=== PATIENT | male | born 1985 | race Two or more races ===

== ENCOUNTER 2024-11-28 11:18 | Emergency (ER) | payer MEDICAID, SELFPAY ==
[2024-11-28] VITALS (7 sets, daily range): BP systolic 97–180; BP diastolic 42–82; PULSE 77–94; RESP 16–20; TEMP 36.7–36.9; O2SAT 95–98; BMI 35.4
--- NOTE | 2024-11-28 11:46 | EKG_ITS ---
[facility] Test Date: 2024-11-28 Pat Name: QUETA RODRIGUEZ Department: Room: - Gender: Male Control Room Agent: : 1985 Requested By: Luis Lr Order Number: [id number] Reading MD: Luis Lr Measurements Intervals [place] Rate: 74 P: -2 NH: 143 QRS: -7 QRSD: 106 T: 24 QT: 409 QTc: 455 Interpretive Statements SINUS RHYTHM MODERATE VOLTAGE CRITERIA FOR LVH, CONSIDER NORMAL VARIANT [MEETS CRITERIA IN ONE OF: R(aVL), S(V1), R(V5), R(V5/V6)+S(V1)] No previous ECG available for comparison /store/S0/[id number].pdf
--- NOTE | 2024-11-28 11:47 | EDNOTE_ITS ---
Nausea/Vomit./Diarrhea-RME/HPI General Chief complaint: Nausea/Vomiting/Diarrhea Stated complaint: NAUSEA AND VOMITTING Time Seen by Provider: 11/28/24 11:45 Arrival date/time: 11/28/24 11:18 RME / HPI RME / HPI Narrative: 39-year-old male patient with significant history of alcoholic liver cirrhosis, hypertension came in for evaluation regarding vomiting. Patient's been vomiting since earlier today, bloody, x 2, severity moderate. Patient also mention about dark-colored stool for the last few days. Patient was drinking alcohol on a daily basis, last drink today 3 beers. Denies any other complaints. Related Data Home Medications ?Medication ?Instructions ?Recorded ?Confirmed acamprosate 333 mg tablet,delayed 333 mg PO TID 09/22/23 release Previous Rx's ?Medication ?Instructions ?Recorded folic acid 1 mg tablet 1 mg PO QDAY 30 days #30 tab s 03/09/24 lactulose 10 gram/15 mL oral 15 ml PO QDAY 30 days #0 mL 03/09/24 solution (Constulose) losartan 25 mg tablet 25 mg PO QDAY 30 days #30 ta bs 03/09/24 pantoprazole 40 mg tablet,delayed 40 mg PO QDAY 30 day s #30 tabs 03/09/24 release propranolol 10 mg tablet 10 mg PO TID 30 days #90 tab s 03/09/24 rifaximin 550 mg tablet (Xifaxan) 550 mg PO BID 30 day s #60 tabs 03/09/24 thiamine mononitrate (vit B1) 100 100 mg PO QDAY 30 da ys #60 tabs 03/09/24 mg tablet Allergies Allergy/AdvReac Type Severity Reaction Status Date / Time No Known Allergies Allergy Verified 09/22/23 15:51 Review of Systems Review of Systems Narrative Review of Systems: Review of system reviewed and within normal limits except mentioned in HPI ED Exam Narrative Physical exam: VITAL SIGNS: Reviewed. GENERAL APPEARANCE: Alert and interactive, follows commands, no acute distress, HEAD AND FACE: Non-traumatic. ENT: PERRL, icteric sclera, eyelid no trauma, Mucous membrane moist. NECK: Supple, nontender, no nuchal rigidity. CHEST: No tenderness, no crepitus, no paradoxical movement, no retractions. LUNGS: Clear, well ventilated, symmetric, no rales, no wheezing, no ronchi, no stridor, good breath sounds bilaterally. HEART: Regular rate, regular rhythm, no murmur, no gallops. ABDOMEN: Soft, positive bowel sounds, nondistended, no guarding, nontender, no rebound, no masses, RECTAL: Deferred. GENITAL: Deferred. NEUROLOGICAL: Gross motor function intact sensory function intact, Appropriate for age. MUSCULOSKELETAL: low back nontender, full range of motion. EXTREMITIES: Nontender, full range of motion. SKIN: Color pink, dry, no rash, no lacerations, no abrasions, no contusions. LYMPHATICS: Deferred. Course Quality Measures none Orders Category Date Time Status EKG (ED ONLY) *Do not use* NOW Care 11/28/24 11:46 Completed Insert IV NOW Care 11/28/24 12:34 Active Occult Blood,Stool (Nursing) ONCE Care 11/28/24 11:46 Active Referral - Wireless Sales Expert Stat Cons 11/28/24 15:54 Active EKG (ED Only) Stat Exams 11/28/24 11:46 Draft Alcohol, Urine Stat Lab 11/28/24 12:09 Completed CBC Stat Lab 11/28/24 12:02 Completed CBC [CBC] Stat Lab 11/28/24 16:40 Completed Comprehensive Metabolic Panel Stat Lab 11/28/24 12:02 Completed Drug Screen,Urine Stat Lab 11/28/24 12:09 Completed Lipase Stat Lab 11/28/24 12:02 Completed Occult Blood, Stool (LAB) Stat Lab 11/28/24 11:55 Completed Partial Thromboplastin Time Stat Lab 11/28/24 12:02 Completed Prothrombin Time with INR Stat Lab 11/28/24 12:02 Completed Type and Screen Stat Lab 11/28/24 12:02 Completed UA, C/S IF [Urinalysis, C/S if Indicated] Stat Lab 11/28/24 12:09 Completed LORazepam [Ativan Inj] Med 11/28/24 18:12 Discontinued 2 mg IVP X1 ONE Metoclopramide Inj [Reglan Inj] Med 11/28/24 11:47 Discontinued 10 mg IVP X1 ONE Metoclopramide Inj [Reglan Inj] Med 11/28/24 18:09 Discontinued 10 mg IVP X1 ONE Octreotide Acet Inj [SandoSTATIN Inj] Med 11/28/24 11:46 Discontinued 50 mcg IV X1 ONE Ondansetron Inj [Zofran Inj] Med 11/28/24 12:36 Discontinued 4 mg IV X1 ONE Ondansetron Inj [Zofran Inj] Med 11/28/24 18:09 Discontinued 4 mg IV X1 ONE Pantoprazole Inj [Protonix Inj] Med 11/28/24 11:46 Discontinued 80 mg IV X1 ONE Sodium Chloride 0.9% [Ns] 100 ml Med 11/28/24 11:47 Active Octreotide Acet Inj [SandoSTATIN Inj] 1,000 mcg IV 50 mcg/hr Vital Signs Vital signs: Vital Signs Temperature 98.2 F 11/28/24 11:31 Pulse Rate 77 11/28/24 11:31 Respiratory Rate 18 11/28/24 11:31 Blood Pressure 161/82 H 11/28/24 11:31 Pulse Oximetry (%) 98 11/28/24 11:31 Oxygen Delivery Method Room Air 11/28/24 11:31 Nausea/Vomiting/Diarrhea MDM Narrative MDM Narrative:: 39-year-old male patient with significant history of alcoholic liver cirrhosis, hypertension came in for evaluation regarding vomiting. Patient's been vomiting since earlier today, bloody, x 2, severity moderate. Patient also mention about dark-colored stool for the last few days. Patient was drinking alcohol on a daily basis, last drink today 3 beers. Denies any other complaints. Rectal exam was done by me, no black tarry stool noted however positive for occult blood Patient had 2 episode of coffee-ground vomitus in the emergency room totaling more than 200 cc. Patient's hemoglobin was noted to be 13 hematocrit of 38.1 platelet 42. Total bili was noted to be 7.9 AST of 64 alkaline phos 182. Patient tested positive for occult blood. I repeated the hemoglobin, it did drop a little bit to 12.4 Was given IV Protonix 80 mg x 1 Sandostatin IV and currently on Sandostatin drip. Was also given Zofran and Reglan. Patient is to be transferred to higher level care where there is GI specialist on-call Spoke with hospitalist, in [facility], accepting doctor, Dr. Soto. Thank you DrManny Patient data External records reviewed:: None Clinical information provided by:: patient Social determinants that could affect healthcare access:: none Patient has the following chronic illnesses:: Alcohol liver cirrhosis How is presenting disease/condition affected by chronic disease/condition?: exacerbated by Evaluation data The following diagnostics were reviewed and interpreted by me:: lab results and EKG tracing(s) Lab and/or radiology exams considered but not ordered:: None Interpretation Summary: EKG showed normal sinus rhythm, ventricular rate of 74 bpm, no ST segment elevation or depression noted. Medications / Prescriptions Medications / Prescriptions considered but not ordered:: None Medication administrations:: Medication Administration History Octreotide Acetate 1,000 mcg/ (Sodium Chloride) 102 mls @ 5.1 mls/hr IV .Q20H ONE; Protocol Stop: 11/29/24 07:46 Last Admin: 11/28/24 12:33 Dose: 50 mcg/hr, 5.1 mls/hr Documented By: MILADIS Discontinued Medications Lorazepam (Lorazepam 2 Mg/Ml Vial) 2 mg IVP X1 ONE Stop: 11/28/24 18:13 Last Admin: 11/28/24 18:27 Dose: 2 mg Documented By: MILADIS Metoclopramide HCl (Metoclopramide Inj 5 Mg/Ml Vial 2 Ml) 10 mg IVP X1 ONE; Protocol Stop: 11/28/24 11:48 Last Admin: 11/28/24 12:13 Dose: 10 mg Documented By: MILADIS Metoclopramide HCl (Metoclopramide Inj 5 Mg/Ml Vial 2 Ml) 10 mg IVP X1 ONE; Protocol Stop: 11/28/24 18:10 Last Admin: 11/28/24 18:25 Dose: 10 mg Documented By: MILADIS Octreotide Acetate (Octreotide Acet Inj 50 Mcg/Ml Vial) 50 mcg IV X1 ONE Stop: 11/28/24 11:47 Last Admin: 11/28/24 12:15 Dose: 50 mcg Documented By: MILADIS Ondansetron HCl (Ondansetron Inj 2 Mg/Ml Inj 2 Ml) 4 mg IV X1 ONE; Protocol Stop: 11/28/24 12:37 Last Admin: 11/28/24 12:47 Dose: 4 mg Documented By: MILADIS Ondansetron HCl (Ondansetron Inj 2 Mg/Ml Inj 2 Ml) 4 mg IV X1 ONE; Protocol Stop: 11/28/24 18:10 Last Admin: 11/28/24 18:22 Dose: 4 mg Documented By: MILADIS Pantoprazole Sodium (Pantoprazole Inj 40 Mg Vial) 80 mg IV X1 ONE Stop: 11/28/24 11:47 Last Admin: 11/28/24 12:11 Dose: 80 mg Documented By: DB Ativan IV, Reglan IV Zofran IV Protonix IV Sandostatin IV and currently on Sandostatin drip Consultations Consultation(s) initiated? (list below): No Diagnosis Nausea Differential Diagnosis: gastroenteritis and other (Upper GI bleed, alcoholic liver cirrhosis, vomiting blood) Most likely diagnosis given after review of the tests above:: Upper GI bleed, vomiting blood, alcoholic liver cirrhosis Admission Indicated Admission indicated?: indicated Explain why admission is indicated or not indicated:: Patient is to be transferred for higher level care Admission Request Was there a request for admission?: No Disposition Plan Disposition Plan: Transfer Discharge Attestation Discharge Attestation: Accepted to [facility] Discharge Plan Plan Patient Disposition: [facility] Pt Being Transferred to: [facility] Prescriptions/Referrals Prescriptions/Med Rec: No Action acamprosate 333 mg tablet,delayed release (DR/EC) 333 mg PO TID Patient Comments: take 1 tablet by mouth three times a day pantoprazole 40 mg tablet,delayed release (DR/EC) 40 mg PO QDAY 30 Days Qty: 30 3RF losartan 25 mg tablet 25 mg PO QDAY 30 Days Qty: 30 3RF folic acid 1 mg tablet 1 mg PO QDAY 30 Days Qty: 30 3RF lactulose [Constulose] 10 gram/15 mL solution 15 ml PO QDAY 30 Days Qty: 0 3RF Patient Comments: take 15 milliliters by mouth once daily Xifaxan 550 mg Tablet 550 mg PO BID 30 Days Qty: 60 3RF thiamine mononitrate (vit B1) 100 mg tablet 100 mg PO QDAY 30 Days Qty: 60 3RF propranolol 10 mg tablet 10 mg PO TID 30 Days Qty: 90 3RF Referrals: No Primary/Family,Physician [Primary Care Provider] - In 1 week Problem List Clinical Impression: Acute upper GI bleed, Alcoholic cirrhosis of liver, Vomiting blood Patient/Caregiver Discharge Instructions Print Language: [place] Stand Alone Forms: [facility] Award Info., Patient Portal Info Letter
[2024-11-28 12:09] LABS: Basophils # (Auto) 0.1 Thou/mm3 (0.0-0.2); Basophils % (Auto) 1 % (0-2.5); Eosinophils % (Auto) 1 % (0-10); Hematocrit 38.1 % (41.0-53.0); Immature Granulocytes % (Auto) 1 % (0-0); Immature Granulocytes Auto 0.04 Thou/mm3 (0.00-0.00); Lymphocytes # (Auto) 0.7 Thou/mm3 (1.0-4.8); Lymphocytes % (Auto) 18 % (10-50); Mean Corpuscular HGB Conc 34.1 g/dl (31.0-37.0); Mean Corpuscular Hemoglobin 34.7 pg (25.0-35.0); Mean Corpuscular Volume 102 fL (80-100); Monocytes # (Auto) 0.5 Thou/mm3 (0.0-0.8); Monocytes % (Auto) 13 % (0-12); Neutrophils # (Auto) 2.6 Thou/mm3 (1.8-7.7); Neutrophils % (Auto) 66 % (37-80); Nucleated Red Blood Cell % 0 /100 WBC (0); RDW Standard Deviation 66.6 fL (35.1-43.9); Red Blood Count 3.75 Miln/mm3 (4.50-5.90); White Blood Count 3.9 Thou/mm3 (3.8-10.6)
[2024-11-28] MEDS: PANTOPRAZOLE INJ 40 MG VIAL 80 MG IV (12:11)
[2024-11-28] MEDS: METOCLOPRAMIDE INJ 5 MG/ML VIAL 2 ML 10 MG IVP ×2 (12:13→18:25)
[2024-11-28 12:14] LABS: Collection Type, Urine Clean Catch
[2024-11-28 12:14] LABS: Platelet Count 42 Thou/mm3 (140-440)
[2024-11-28] MEDS: OCTREOTIDE ACET INJ 50 mCg/ML VIAL IV (12:15)
[2024-11-28 12:21] LABS: Bacteria,Urine Rare; Bilirubin,Urine 1+ (Negative); Blood,Urine 1+ (Negative); Clarity,Urine Clear (Clear/Hazy); Color,Urine Drk-Yellow (Lt Yel-Yel); Culture Indicated,Urine Not Indicated; Glucose, Urine 4+ (Negative); Ketones,Urine 2+ (Negative); Leukocyte Esterase,Urine Negative (Negative); Nitrite,Urine Negative (Negative); Protein,Urine Trace (Neg - Trace); RBC,Urine 17 /hpf (0-3); Specific Gravity,Urine 1.027 (1.001-1.035); Squamous Epithelial Cell,Urine 1 /hpf (0-5); WBC,Urine 2 /hpf (0-5)
[2024-11-28 12:25] LABS: INR 1.9 (0.9-1.3); Partial Thromboplastin Time 32.9 Seconds (22.0-36.0); Prothrombin Time 19.8 Seconds (9.0-12.2)
[2024-11-28 12:26] LABS: OBS Developer Lot # 124; OBS Performed By BOTED; OBS QC OK? Yes; Occult Blood, Stool Positive (Negative)
[2024-11-28 12:28] LABS: Alanine Aminotransferase 35 U/L (10-49); Albumin, Serum 2.6 gm/dL (3.5-5.0); Albumin/Globulin Ratio 0.6 (1.2-2.2); Alkaline Phosphatase 182 U/L (46-116); Anion Gap 7 (7-16); Aspartate Amino Transferase 64 U/L (0-34); BUN/Creatinine Ratio 17 Ratio (12-20); Bilirubin,Total 7.9 mg/dL (0.3-1.2); Blood Urea Nitrogen 10 mg/dL (9-23); Calcium 8.5 mg/dL (8.3-10.6); Calcium (Corrected) 9.6 mg/dL (8.5-10.1); Carbon Dioxide 26.2 mMol/L (20.0-31.0); Chloride 105 mMol/L (98-107); Creatinine (Component) 0.6 mg/dL (0.6-1.3); Globulin 4.5 gm/dL (2.3-3.5); Glucose 230 mg/dL (74-106); Lipase 76 U/L (12-53); Osmolality,Calculated 281 (275-295); Potassium 4.3 mMol/L (3.4-5.1); Sodium 138 mMol/L (136-145); Total Protein 7.1 gm/dL (5.7-8.2); eGFR > 60 See Note
[2024-11-28] MEDS: OCTREOTIDE ACET INJ 1,000 MCG in SODIUM CHLORIDE 0.9% 100 ML 5.1 MCG IV (12:33)
[2024-11-28 12:39] LABS: Amphetamine/Methamp Scrn,U Negative (Negative); Barbiturate Screen,Urine Negative (Negative); Benzodiazepines Screen,Urine Positive (Negative); Benzoylecgonine Screen, Ur Negative (Negative); Fentanyl Screen,Urine Negative (Negative); Opiate Screen,Urine Negative (Negative); THC Screen,Urine Positive (Negative)
[2024-11-28] MEDS: ONDANSETRON INJ 2 MG/ML INJ 2 ML 4 MG IV ×2 (12:47→18:22)
[2024-11-28 13:10] LABS: Slide Review Platelets confirmed
[2024-11-28 13:48] LABS: Alcohol, Urine Positive (Negative)
--- NOTE | 2024-11-28 16:41 | PC.CC ---
Addendum entered by Neva Cohen RN 11/28/24 18:50: Spoke to Nicole at [facility] about transfer, call transferred to ER Original Note: Made aware that patient needs transfer by Dr. Munroe, Chart faxed to [facility], spoke to Naomy at [facility] transfer center will wait for call back
[2024-11-28 16:49] LABS: Basophils # (Auto) 0.1 Thou/mm3 (0.0-0.2); Basophils % (Auto) 1 % (0-2.5); Eosinophils % (Auto) 1 % (0-10); Hematocrit 36.3 % (41.0-53.0); Hemoglobin 12.4 g/dL (13.5-16.0); Immature Granulocytes % (Auto) 1 % (0-0); Immature Granulocytes Auto 0.04 Thou/mm3 (0.00-0.00); Lymphocytes # (Auto) 0.7 Thou/mm3 (1.0-4.8); Lymphocytes % (Auto) 15 % (10-50); Mean Corpuscular HGB Conc 34.2 g/dl (31.0-37.0); Mean Corpuscular Hemoglobin 34.4 pg (25.0-35.0); Mean Corpuscular Volume 101 fL (80-100); Monocytes # (Auto) 0.5 Thou/mm3 (0.0-0.8); Monocytes % (Auto) 12 % (0-12); Neutrophils # (Auto) 3.1 Thou/mm3 (1.8-7.7); Neutrophils % (Auto) 70 % (37-80); Nucleated Red Blood Cell % 0 /100 WBC (0); White Blood Count 4.4 Thou/mm3 (3.8-10.6)
[2024-11-28 16:56] LABS: Platelet Count 41 Thou/mm3 (140-440)
[2024-11-28 16:58] LABS: Slide Review Platelets confirmed
[2024-11-28] MEDS: LORazepam 2 MG/ML VIAL IVP (18:27)
--- NOTE | 2024-11-28 20:30 | PC.NURSE ---
2017 [facility] CONTACTED. TRANSFER NURSE STATED THAT DR [place] STATES HE IS AT [facility] AT THIS TIME.
--- NOTE | 2024-11-28 20:59 | PC.NURSE ---
2020 [facility] CONTACTED TRANSFER NURSE SPEAKING WITH PHILIP ADKINS.
[2024-11-29 00:18] VITALS: BP 133/69; PULSE 84; RESP 16; TEMP 36.8; O2SAT 97
--- NOTE | 2024-11-29 01:38 | PC.NURSE ---
PT ACCEPTED BY DR TRAORE WITH [facility]. PER TRANSFER NURSE WE ARE AWAITING BED. TRANSFER NURSE CALLED [facility] PT AWAITING INSURANCE AUTHORIZATION.
[2024-11-29 04:00] VITALS: BP 125/53; PULSE 75; RESP 16; TEMP 36.7; O2SAT 97
--- NOTE | 2024-11-29 04:20 | PC.NURSE ---
DR. CULLEN MADE AWARE PT HAVING NAUSEA AND VOMITING BLOOD TINGED SPUTUM. TO ORDER MEDICATION.
[2024-11-29] MEDS: ONDANSETRON INJ 2 MG/ML INJ 2 ML 4 MG IV (04:26)
[2024-11-29] MEDS: LORazepam 2 MG/ML VIAL IVP (04:28)
--- NOTE | 2024-11-29 04:39 | PC.NURSE ---
SANDOSTATIN DRIP STOPPED PER DR. CULLEN PRIOR TO TRANSFER.
--- NOTE | 2024-11-29 04:43 | PC.NURSE ---
REPORT CALLED AND GIVEN TO NURSE AT [facility].
== END 2024-11-29 04:49 | disposition short-term general hospital (02) ==
PROVIDERS: Nurse Practitioner Family; Emergency Provider Emergency Medicine
DX: K92.2 Gastrointestinal hemorrhage, unspecified (principal); K70.30 Alcoholic cirrhosis of liver without ascites; K92.0 Hematemesis; R94.31 Abnormal electrocardiogram [ECG] [EKG]; I10 Essential (primary) hypertension; Z75.1 Person awaiting admission to adequate facility elsewhere
CPT/HCPCS: 36415; 80053; 80307; 80320; 81001; 82270; 83690; 85025; 85610; 85730; 86850; 86900; 86901; 93005; 96374; 96375; 96376; 99285; J2060; J2354; J2405; J2470; J2765; J7050; G0480

== ENCOUNTER 2024-12-09 19:35 | Emergency (ER) | payer MEDICAID, SELFPAY ==
[2024-12-09 19:38] VITALS: BP 129/76; PULSE 57; RESP 19; TEMP 36.6; O2SAT 95; BMI 31.5
--- NOTE | 2024-12-09 19:40 | XR_ITS ---
Examination: AP chest single view TECHNIQUE: AP portable sitting chest single view Exam date and time December 09, 2024 195 hours Comparison 05/01/2023 INDICATIONS: Cough and congestion today FINDINGS: Mild enlargement left ventricle No aspiration pneumonia The osseous structures are intact IMPRESSION: No aspiration pneumonia
--- NOTE | 2024-12-09 19:41 | EKG_ITS ---
[facility] Test Date: 2024-12-09 Pat Name: QUETA RODRIGUEZ Department: Room: - Gender: Male Roll Out Manager: : 1985 Requested By: Lincoln Leggett Order Number: [id number] Reading MD: Lincoln Leggett Measurements Intervals [place] Rate: 55 P: -8 CT: 181 QRS: -2 QRSD: 114 T: 3 QT: 476 QTc: 459 Interpretive Statements SINUS BRADYCARDIA MODERATE INTRAVENTRICULAR CONDUCTION DELAY [110+ ms QRS DURATION] PROLONGED QT INTERVAL Compared to ECG 11/28/2024 11:56:19 Intraventricular conduction delay now present Prolonged QT interval now present Sinus rhythm no longer present /store/S0/[id number]/ecg/[id number].pdf
--- NOTE | 2024-12-09 19:42 | EDNOTE_ITS ---
ED General RME/HPI General Chief complaint: Nausea/Vomiting/Diarrhea Stated complaint: NAUSEA, VOMITING Time Seen by Provider: 12/09/24 19:40 Arrival date/time: 12/09/24 19:35 CC: Nausea vomiting diarrhea HPI for 3 days. Family report to EMS the patient stopped drinking alcohol cold turkey approximately a week to 10 days ago. EMS reports stable vital signs patient is very jaundiced awake slurred speech. But answering all questions appropriately Related Data Home Medications ?Medication ?Instructions ?Recorded ?Confirmed acamprosate 333 mg tablet,delayed 333 mg PO TID 09/22/23 release Previous Rx's ?Medication ?Instructions ?Recorded folic acid 1 mg tablet 1 mg PO QDAY 30 days #30 tab s 03/09/24 lactulose 10 gram/15 mL oral 15 ml PO QDAY 30 days #0 mL 03/09/24 solution (Constulose) losartan 25 mg tablet 25 mg PO QDAY 30 days #30 ta bs 03/09/24 pantoprazole 40 mg tablet,delayed 40 mg PO QDAY 30 day s #30 tabs 03/09/24 release propranolol 10 mg tablet 10 mg PO TID 30 days #90 tab s 03/09/24 rifaximin 550 mg tablet (Xifaxan) 550 mg PO BID 30 day s #60 tabs 03/09/24 thiamine mononitrate (vit B1) 100 100 mg PO QDAY 30 da ys #60 tabs 03/09/24 mg tablet Allergies Allergy/AdvReac Type Severity Reaction Status Date / Time No Known Allergies Allergy Verified 09/22/23 15:51 Review of Systems Review of Systems Narrative Review of Systems: GEN: No fever, no chills, no weight loss EYES: No discharge, no visual changes, no pain HEENT: No ear pain, no congestion, no sore throat PULM: No shortness of breath, no cough, no congestion CV: No chest pain, no dyspnea on exertion, no palpitations GI: + nausea, + vomiting, + diarrhea, no pain, no constipation : No frequency, no urgency, no dysuria MUSC/SKEL: No joint pain, no back pain SKIN: No rash PSYCH: No hallucinations, no depression HEME/LYMPH: No easy bleeding or bruising tendencies NEURO: No weakness, no headache Past Medical History Past Medical History NEUROLOGIC: Negative Seizures CARDIAC: Positive Hypertension; Negative Congestive Heart Failure RESPIRATORY: Negative Chronic Obstructive Pulmonary Disease (COPD) GASTROINTESTINAL: Positive Cirrhosis and Gastrointestinal Bleed GENITOURINARY: Negative Renal Disease ENDOCRINE: Negative Diabetes Mellitus Type 1 or Diabetes Mellitus Type 2 OTHER HISTORY: Negative Blood Transfusions, Blood Transfusion Reaction or Anesthesia Reactions Social History SMOKING STATUS: Former smoker ED Exam Narrative Physical exam: [General: Obese appears not in any acute distress Head normocephalic HEENT: Eyes pupils are PERRLA Scleras are jaundice, EOMs intact. Mouth: [place] dry membranes uvula is midline swallow symmetrical all the subsystems of HEENT are within acceptable limits Neck is supple nontender no JVD Chest equal chest rise nontender to palpation Respiratory: Clear to auscultation no wheezes crackles or rubs CV: Rate rhythm is regular no murmurs rubs or clicks Abdomen is grossly distended secondary to body habitus soft nontender no masses positive bowel sounds all 4 quadrants Back: No CVA tenderness no spinous process tenderness from cervical spine thoracic and lumbar spine Skin: Intact no petechiae rash induration ulceration or crepitus Extremities: Moving all extremity against resistance cap refill less than 2 seconds neurosensory intact Neuro: Awake alert oriented x2, person and place, Glascow coma 15 no focal deficits] Course Course Course Narrative: Patient has decompensated cirrhosis. INR significantly elevated T. bili at 32, this was discussed with Dr. Melendez, who discussed it also with Dr. Tian regarding the patient attempted to find a department of sociology chair where the patient can be transferred to. On the MELD NA score patient has 40 points. We will start with [place] where [facility]. Quality Measures none Orders Category Date Time Status EKG (ED ONLY) *Do not use* NOW Care 12/09/24 19:41 Completed Saline [Insert IV] NOW Care 12/09/24 19:41 Completed EKG (ED Only) Stat Exams 12/09/24 19:41 Draft XR chest 1V Stat Exams 12/09/24 19:40 Completed Alcohol, Blood Medical Stat Lab 12/09/24 21:15 Completed Ammonia Stat Lab 12/09/24 19:50 Completed B-Type Natriuretic Peptide Stat Lab 12/09/24 19:50 Completed CBC Stat Lab 12/09/24 19:50 Completed Comprehensive Metabolic Panel Stat Lab 12/09/24 21:15 Completed Drug Screen,Urine Stat Lab 12/09/24 21:00 Completed LDH (Lactate Dehydrogenase) Stat Lab 12/09/24 21:15 Completed Lipase Stat Lab 12/09/24 21:15 Completed Magnesium Stat Lab 12/09/24 21:15 Completed Partial Thromboplastin Time Stat Lab 12/09/24 19:50 Completed Prothrombin Time with INR Stat Lab 12/09/24 19:50 Completed Troponin I Stat Lab 12/09/24 21:15 Completed Urinalysis Stat Lab 12/09/24 21:00 Completed Lactulose Syrup [Enulose Syrup] Med 12/09/24 21:31 Discontinued 40 gm PO X1 ONE Ondansetron Inj [Zofran Inj] Med 12/09/24 20:09 Discontinued 4 mg IV X1 ONE Sodium Chloride 0.9% 1000 ml [Ns] 1,000 ml Med 12/10/24 00:21 Discontinued IV 999 mls/hr Sodium Chloride 0.9% 1000 ml [Ns] 1,000 ml Med 12/10/24 00:40 Discontinued IV 999 mls/hr Vital Signs Vital signs: Vital Signs Temperature 97.8 F 12/09/24 19:38 Pulse Rate 57 L 12/09/24 19:38 Respiratory Rate 19 12/09/24 19:38 Blood Pressure 129/76 12/09/24 19:38 Pulse Oximetry (%) 95 12/09/24 19:38 Oxygen Delivery Method Room Air 12/09/24 19:38 Discharge Plan Plan Patient Disposition: Xfer Acute Care Fac Prescriptions/Referrals Prescriptions/Med Rec: No Action acamprosate 333 mg tablet,delayed release (DR/EC) 333 mg PO TID Patient Comments: take 1 tablet by mouth three times a day pantoprazole 40 mg tablet,delayed release (DR/EC) 40 mg PO QDAY 30 Days Qty: 30 3RF losartan 25 mg tablet 25 mg PO QDAY 30 Days Qty: 30 3RF folic acid 1 mg tablet 1 mg PO QDAY 30 Days Qty: 30 3RF lactulose [Constulose] 10 gram/15 mL solution 15 ml PO QDAY 30 Days Qty: 0 3RF Patient Comments: take 15 milliliters by mouth once daily Xifaxan 550 mg Tablet 550 mg PO BID 30 Days Qty: 60 3RF thiamine mononitrate (vit B1) 100 mg tablet 100 mg PO QDAY 30 Days Qty: 60 3RF propranolol 10 mg tablet 10 mg PO TID 30 Days Qty: 90 3RF Referrals: No Primary/Family,Physician [Primary Care Provider] - In 1 week Problem List Clinical Impression: Decompensated cirrhosis, ALEXUS (acute kidney injury), Increased ammonia level, Elevated INR, Elevated partial thromboplastin time (PTT), Acholuric jaundice, Acquired hyperbilirubinemia Patient/Caregiver Discharge Instructions Print Language: Cypriot Stand Alone Forms: [facility] Award Info., Patient Portal Info Letter MDM Labs Lab(s) Interpretation(s): CBC shows WBCs at 7.8 H&H of 14.5 and 39.3 respectively platelets at 122. Coags show PT of 30.8 INR 3.0 PTT of 67.8 CMP shows sodium 127 potassium of 5.3 chloride of 98 CO2 21.2 gap of 8 BUN of 39 creatinine of 2.8 Glucose of 124 calculated osmolarity 265 Total bili of 32 AST 261 ALT 141 alk phos 177 Ammonia 168 LDH 297 BNP 140 Lipase of 87. Urine is dark and turbid 4+ bilirubin no signs of infection UDS is negative other than marijuana Alcohol level is less than 10. Medication Administration(s) Medication Administration History Discontinued Medications Sodium Chloride (Ns) 1,000 mls @ 999 mls/hr IV .Q1H1M LILA Stop: 01/09/25 00:20 Last Admin: 12/10/24 00:41 Dose: Not Given Documented By: CCT Non-Admin Reason: Cancelled by Provider Sodium Chloride (Ns) 1,000 mls @ 999 mls/hr IV .Q1H1M ONE Stop: 12/10/24 01:40 Last Infusion: 12/10/24 01:45 Dose: Infused Documented By: Admin: 12/10/24 00:43 Dose: 999 mls/hr Documented By: CCT Lactulose (Lactulose Syrup 20 Gm/30 Ml Udc) 40 gm PO X1 ONE; Protocol Stop: 12/09/24 21:32 Last Admin: 12/09/24 21:52 Dose: 40 gm Documented By: CCT Ondansetron HCl (Ondansetron Inj 2 Mg/Ml Inj 2 Ml) 4 mg IV X1 ONE; Protocol Stop: 12/09/24 20:10 Last Admin: 12/09/24 20:13 Dose: 4 mg Documented By: CCT
[2024-12-09 19:48] VITALS: PULSE 56; RESP 18; O2SAT 99
--- NOTE | 2024-12-09 19:48 | PC.NURSE ---
Pt brought to the ER via [facility] for c/o nausea/vomiting and weakness x3 days.. Report received from Kaela. Pt is alert/oriented to self and place. Pt states he was recently discharge from hospital in [place]. He was transferred to [place] for GI bleed. Pt states he has been vomiting and feel very weakness. Pt is jaundice in color. Pt states he hasn't drank alcohol since he was hospitalized. Pt placed on components engineer. Bed to lowest position. Call light within. Plan of care ongoing.
--- NOTE | 2024-12-09 19:48 | PC.NURSE ---
Pt brought to the ER via [facility] for c/o nausea/vomiting and weakness x3 days.. Report received from Kaela. Pt is awake/alert/oriented x 3. Pt states he was recently discharge from hospital in [place]. He was transferred to [place] for GI bleed 11/28/24. Pt states he has been vomiting and feel very weakness. Pt is jaundice in color. Pt states he has drank alcohol since he was hospitalized. Pt placed on medical librarian. Bed to lowest position. Call light within. Plan of care ongoing.
[2024-12-09 19:59] LABS: Basophils # (Auto) 0.1 Thou/mm3 (0.0-0.2); Basophils % (Auto) 1 % (0-2.5); Eosinophils # (Auto) 0.1 Thou/mm3 (0.0-0.5); Eosinophils % (Auto) 1 % (0-10); Hematocrit 39.3 % (41.0-53.0); Hemoglobin 14.5 g/dL (13.5-16.0); Immature Granulocytes % (Auto) 2 % (0-0); Immature Granulocytes Auto 0.15 Thou/mm3 (0.00-0.00); Lymphocytes % (Auto) 13 % (10-50); Mean Corpuscular HGB Conc 36.9 g/dl (31.0-37.0); Mean Corpuscular Hemoglobin 36.1 pg (25.0-35.0); Mean Corpuscular Volume 98 fL (80-100); Monocytes # (Auto) 0.9 Thou/mm3 (0.0-0.8); Monocytes % (Auto) 12 % (0-12); Neutrophils # (Auto) 5.6 Thou/mm3 (1.8-7.7); Neutrophils % (Auto) 72 % (37-80); Nucleated Red Blood Cell % 0 /100 WBC (0); Platelet Count 121 Thou/mm3 (140-440); RDW Standard Deviation 56.2 fL (35.1-43.9); Red Blood Count 4.02 Miln/mm3 (4.50-5.90); White Blood Count 7.8 Thou/mm3 (3.8-10.6)
[2024-12-09] MEDS: ONDANSETRON INJ 2 MG/ML INJ 2 ML 4 MG IV (20:13)
[2024-12-09 20:27] LABS: Partial Thromboplastin Time 67.8 Seconds (22.0-36.0)
[2024-12-09 20:31] LABS: Ammonia 168 uMol/L (11-32); Prothrombin Time 30.8 Seconds (9.0-12.2)
[2024-12-09 20:36] LABS: B-Type Natriuretic Peptide 140 pg/mL (0-100)
[2024-12-09 21:26] LABS: Collection Type, Urine Clean Catch; RBC,Urine 0 /hpf (0-3); WBC,Urine 0 /hpf (0-5)
[2024-12-09 21:37] LABS: Amorphous Crystals,Urine Present (Absent); Bacteria,Urine Rare; Bilirubin,Urine 4+ (Negative); Blood,Urine Trace (Negative); Color,Urine Drk-Yellow (Lt Yel-Yel); Glucose, Urine Trace (Negative); Hyaline Casts,Urine < 1 /hpf (0-1); Ketones,Urine Trace (Negative); Leukocyte Esterase,Urine Negative (Negative); Nitrite,Urine Negative (Negative); Protein,Urine Negative (Neg - Trace); Specific Gravity,Urine 1.021 (1.001-1.035); Squamous Epithelial Cell,Urine 4 /hpf (0-5)
[2024-12-09 21:43] LABS: Clarity,Urine Turbid (Clear/Hazy)
[2024-12-09 21:48] LABS: Alanine Aminotransferase 141 U/L (10-49); Albumin, Serum 2.4 gm/dL (3.5-5.0); Albumin/Globulin Ratio 0.5 (1.2-2.2); Alkaline Phosphatase 177 U/L (46-116); Anion Gap 8 (7-16); Aspartate Amino Transferase 261 U/L (0-34); BUN/Creatinine Ratio 14 Ratio (12-20); Blood Urea Nitrogen 39 mg/dL (9-23); Calcium 8.3 mg/dL (8.3-10.6); Calcium (Corrected) 9.6 mg/dL (8.5-10.1); Carbon Dioxide 21.2 mMol/L (20.0-31.0); Chloride 98 mMol/L (98-107); Creatinine (Component) 2.8 mg/dL (0.6-1.3); Estimated Creatinine Clearance 41.9 mL/min (>60); Globulin 4.6 gm/dL (2.3-3.5); Glucose 124 mg/dL (74-106); LDH (Lactate Dehydrogenase) 297 U/L (120-246); Lipase 87 U/L (12-53); Magnesium 2.4 mg/dL (1.6-2.6); Osmolality,Calculated 265 (275-295); Potassium 5.3 mMol/L (3.4-5.1); Sodium 127 mMol/L (136-145); Troponin I < 0.002 ng/mL (0.0-0.045); eGFR 29 See Note
[2024-12-09 21:49] LABS: Amphetamine/Methamp Scrn,U Negative (Negative); Barbiturate Screen,Urine Negative (Negative); Benzodiazepines Screen,Urine Negative (Negative); Benzoylecgonine Screen, Ur Negative (Negative); Fentanyl Screen,Urine Negative (Negative); Opiate Screen,Urine Negative (Negative); THC Screen,Urine Positive (Negative)
[2024-12-09] MEDS: LACTULOSE SYRUP 20 GM/30 ML UDC 40 GM PO (21:52)
[2024-12-09 22:00] VITALS: BP 135/80; PULSE 59; RESP 20; TEMP 36.6; O2SAT 96
[2024-12-09 22:58] LABS: Alcohol, Blood Medical < 10.0 mg/dL (0-10.0)
--- NOTE | 2024-12-09 23:14 | EDNOTE_ITS ---
Emergency Room Addendum Addendum Narrative: 2300: Care assumed from Lincoln Leggett NP. Past medical, surgical, social and family history reviewed. Vitals and home medications reviewed. Results and treatment plan discussed. I will assume the care of the patient at this time and will follow the patient, pending transfer. Please refer to the emergency department record for history and examination from initial visit. 2315: Spoke with [facility]'s transfer center, who declines the patient for transfer due to not having hepatology services. Patient is resting comfortably and is not in any acute distress at this time. 0006: Spoke with [facility] regarding transfer. Spoke with Dr. Maradiaga, their ED physician, who accepts the patient for transfer.
[2024-12-10] VITALS: BP 102/44; PULSE 55; RESP 18; TEMP 36.6; O2SAT 95
--- NOTE | 2024-12-10 00:06 | PC.NURSE ---
[facility] CONTACTED [facility]T SENT 2[facility] SPEACIALTY NOT AVAILABLE. 2334 [facility] CONTACTED NO SPECIALTY AVAILABLE. 2354 [facility] CONTACTED SPECIALTY NOT AVAILABLE AT THIS TIME. POSSIBLY TRY AGAIN IN THE MORNING. 2357 [facility] CONTACT[facility] SPECIALTY NOT AVAILABLE. 0000 [facility] CONTACTED, SPEAKING WITH [facility].
--- NOTE | 2024-12-10 00:20 | PC.NURSE ---
Pt resting with eyes closed. Respirations are even and unlabored. No s/s of acute distress noted. Significant other at bedside; aware pt will be transferred to another hospital.
[2024-12-10] MEDS: SODIUM CHLORIDE 0.9% 1000 ML 1,000 ML 999 ML IV (00:43)
--- NOTE | 2024-12-10 00:57 | PC.NURSE ---
0017 PT GRACIOUSLY ACCEPTED TO [facility] BY DR JESSE KISER. REPORT TO [phone].
[2024-12-10 01:40] VITALS: BP 108/53; PULSE 55; RESP 17; TEMP 36.3; O2SAT 96
[2024-12-10 03:00] VITALS: BP 112/59; PULSE 60; RESP 18; TEMP 36.4; O2SAT 95
--- NOTE | 2024-12-10 03:12 | PC.NURSE ---
Report given to [facility], Report given to ALEJANDRA RN at [facility]
--- NOTE | 2024-12-10 05:28 | PC.NURSE ---
0528 RECEIVED CALL FROM [facility] STATING [facility]BUL[facility]SPORT HAS A MECHANICAL BREAKDOWN AND ANOTHER UNIT HAS BEEN SENT TO TRANSPORT PT TO DESTINATION. [facility] HAS BEEN NOTIFIED CONCERNING DELAY.
== END 2024-12-10 03:49 | disposition short-term general hospital (02) ==
PROVIDERS: Registered Nurse General Practice; Emergency Provider Emergency Medicine
DX: K74.60 Unspecified cirrhosis of liver (principal); N17.9 Acute kidney failure, unspecified; R79.1 Abnormal coagulation profile; E80.6 Other disorders of bilirubin metabolism; D58.0 Hereditary spherocytosis; R05.9 Cough, unspecified; R00.1 Bradycardia, unspecified; I45.89 Other specified conduction disorders; I10 Essential (primary) hypertension; Z87.891 Personal history of nicotine dependence; Z75.1 Person awaiting admission to adequate facility elsewhere
CPT/HCPCS: 36415; 71045; 80053; 80307; 80320; 81001; 82140; 83615; 83690; 83735; 83880; 84484; 85025; 85610; 85730; 93005; 96360; 99285; J2405; J7030; A9270; G0480